=== PATIENT | male | born 1980 | race Caucasian/White ===

== ENCOUNTER → 2022-04-04 11:43 | Outpatient (CLI) | payer OTHER, SELFPAY ==
--- NOTE | 2022-04-04 17:29 | DI.RAD_ITS ---
Exam(s) XR KNEE RT 3V AP,LAT,LESTER EXAM: XR KNEE RT 3V AP,LAT,LESTER CLINICAL HISTORY: RT KNEE PAIN-M25.561, EVAL FOR BONY ABNORMALITY. TECHNIQUE: 2D digital imaging was performed. Three views. COMPARISON: No exams were available for comparison FINDINGS: BONES: No acute fracture is present. No bony destructive lesion is seen. JOINTS: The knee is normally aligned. No joint effusion is seen. SOFT TISSUE: Normal. IMPRESSION: Unremarkable radiographs of the right knee. DATA REPOSITORY: RADIATION DOSE DELIVERED:
--- NOTE | 2022-04-04 18:14 | DI.VRAD_ITS ---
PROCEDURE INFORMATION: Exam: XR Right Knee Exam date and time: 04/04/2022 5:23 PM Age: 41 years old Clinical indication: Pain; Knee; Right TECHNIQUE: Imaging protocol: Radiologic exam of the Right knee. Views: 3 views. COMPARISON: No relevant prior studies available. FINDINGS: Bones/joints: Normal. Soft tissues: Normal. IMPRESSION: No acute findings. Dictated and Authenticated by: Cornel Melton MD. Ordering:NATTY Montalvo MD
== END ==
PROVIDERS: PCP Nurse Practitioner Family; Visit Provider Physician Assistant Medical
DX: M25.561 Pain in right knee (principal)
CPT/HCPCS: 73562

== ENCOUNTER 2022-04-18 11:34 | Outpatient (CLI) | payer OTHER, SELFPAY ==
--- NOTE | 2022-04-18 08:00 | DI.MRI_ITS ---
Exam(s) MR LOWER JOINT RT WO EXAM: MR LOWER JOINT RT WO CLINICAL HISTORY: traumatic tear medial meniscus rt knee, pain, patellar instability,s83.241a. TECHNIQUE: Multiplanar multisequence MRI was performed. COMPARISON: CR,XR XR KNEE RT 3V AP,LAT,LESTER from 04/04/2022 FINDINGS: BONES: Significant edema in the medial femoral condyle consistent with bone contusion with slight sub cortical impaction. JOINTS: Articular cartilage is unremarkable. A small joint effusion is present. TENDONS: Extensor mechanism: Unremarkable. Medial retinaculum: Significant surrounding edema and thickening question partial disruption near the femoral attachment. Patella appears normally positioned. Lateral retinaculum: Unremarkable. Popliteus: Unremarkable. MUSCLES: Edema in the distal vastus medialis muscle. MENISCI: The medial meniscus is unremarkable. The lateral meniscus is unremarkable. SOFT TISSUES: Edema in the medial subcutaneous fat. Tiny Toro's cyst and fluid extending inferiorly along the medial head of the gastrocnemius muscle. LIGAMENTS: Anterior Cruciate: Unremarkable. Posterior Cruciate: Unremarkable. Medial Collateral:Edema around the medial collateral ligament but no visible focal tear. Lateral Collateral: Unremarkable. IMPRESSION: Contusion of the medial femoral condyle. 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 Edema in the distal vastus medialis muscle. DATA REPOSITORY:
== END 2022-04-18 11:54 ==
LOC: DI 11:45
PROVIDERS: PCP Nurse Practitioner Family; Visit Provider Student in an Organized Health Care Education/Training Program
DX: M25.361 Other instability, right knee (principal); S83.241A Other tear of medial meniscus, current injury, right knee, initial encounter; S80.01XA Contusion of right knee, initial encounter; R60.0 Localized edema; X58.XXXA Exposure to other specified factors, initial encounter
CPT/HCPCS: 73721

== ENCOUNTER 2023-05-29 19:15 | Outpatient (REF) | payer OTHER, SELFPAY ==
[2023-05-31 12:37] LABS: Lyme Ab w Rflx to Lyme Confirm Negative (Negative)
[2023-06-02 19:27] LABS: Anaplasma phagocytophilum Negative (Negative); B. miyamotoi PCR Negative (Negative); Babesia divergens/MO-1 Negative (Negative); Babesia duncani Negative (Negative); Babesia microti Negative (Negative); Ehrlichia chaffeensis Negative (Negative); Ehrlichia ewingii/canis Negative (Negative); Ehrlichia muris eauclairensis Negative (Negative)
== END 2023-05-29 19:16 | disposition home or self-care (01) ==
LOC: LBN 19:15
PROVIDERS: PCP Nurse Practitioner Family; Visit Provider Physician Assistant Medical
DX: R21 Rash and other nonspecific skin eruption (principal); Z11.8 Encounter for screening for other infectious and parasitic diseases
CPT/HCPCS: 87798; 86618